=== PATIENT | male | born 1960 | race Caucasian/White ===

== ENCOUNTER 2016-12-12 11:35 | Emergency (ER) | payer SELFPAY ==
[~2016-12-12] VITALS: Ht 188 cm; Wt 76.2 kg
[2016-12-12 11:38] VITALS: BP 128/70
== END 2016-12-12 12:47 | disposition home or self-care (01) ==
LOC: ED 12:45
DX: R05 Cough (principal); Z87.891 Personal history of nicotine dependence
CPT/HCPCS: 71020; 99284